=== PATIENT | male | born 1985 | race Caucasian/White ===

== ENCOUNTER → 2021-09-30 07:32 | Outpatient (CLI) | payer BC, SELFPAY ==
--- NOTE | ~2021-09-30 | US_ITS ---
EXAMINATION: US soft tissue head and neck DATE: 09/30/2021 08:10 INDICATION: Dysphasia. TECHNIQUE: Multiple ultrasound images of the thyroid were obtained. COMPARISON: None. FINDINGS: The right thyroid lobe measures 5.2 x 1.7 x 1.8 cm. The left thyroid lobe measures 5.4 x 1.3 x 1.7 c m. There is normal echotexture and echogenicity throughout the thyroid gland. No discrete nodules id entified. Normal vascular flow is present. IMPRESSION: 1. Sonographically normal-appearing thyroid. No sonographic abnormality in the adjacent soft tissues. Reviewed, dictated and finalized at location K.
== END ==
PROVIDERS: PCP Student in an Organized Health Care Education/Training Program; Visit Provider Student in an Organized Health Care Education/Training Program
DX: R13.10 Dysphagia, unspecified (principal); R22.1 Localized swelling, mass and lump, neck
CPT/HCPCS: 76536